=== PATIENT | male | born 1995 | race Caucasian/White ===

== ENCOUNTER → 2021-01-09 | Outpatient (REF) | payer OTHER | LOC: M SFHCPLAZ 11:20 | PROVIDERS: ATTEND Internal Medicine Infectious Disease | DX: Z53.9 Procedure and treatment not carried out, unspecified reason (principal); Z86.19 Personal history of other infectious and parasitic diseases ==

== ENCOUNTER 2025-02-12 14:38 | Inpatient (IN) | payer OTHER ==
[~2025-02-12] VITALS: Ht 185.4 cm; Wt 104.1 kg
[2025-02-12 15:35] LABS: HEMATOCRIT 51.8 % (42.0-52.0); HEMOGLOBIN 17.7 g/dl (13.5-17.5); MEAN CORPUSCULAR HEMOGLOBIN 30.6 pg (27.0-33.0); MEAN CORPUSCULAR HGB CONC 34.2 g/dl (32.0-36.5); MEAN CORPUSCULAR VOLUME 89.5 fl (80.0-96.0); PLATELET COUNT, AUTOMATED 345 10^3/uL (150-450); RED BLOOD COUNT 5.79 10^6/uL (4.30-6.10); WHITE BLOOD COUNT 14.6 10^3/uL (4.0-10.0)
[2025-02-12] MEDS: NICOTINE 21MG/24HR 1 EA TRANSDERMAL TD ONE (15:42)
[2025-02-12 15:57] LABS: AMPHETAMINES LEVEL URINE NEGATIVE (NEGATIVE)
[2025-02-12 15:58] LABS: BARBITURATES URINE NEGATIVE (NEGATIVE); BENZODIAZEPINES URINE NEGATIVE (NEGATIVE); COCAINE METABOLITE URINE NEGATIVE (NEGATIVE); METHADONE URINE NEGATIVE (NEGATIVE); OPIATES URINE NEGATIVE (NEGATIVE); PHENCYCLIDINE URINE NEGATIVE (NEGATIVE)
[2025-02-12 16:00] LABS: ETHYL ALCOHOL (ETHANOL) 0.008 % (0.000-0.010)
[2025-02-12 16:01] LABS: ALBUMIN 4.6 G/DL (3.2-5.2); ALKALINE PHOSPHATASE 102 U/L (40-129); ALT/SGPT 51 U/L (7.0-40); AST/SGOT 35 U/L (<34); BILIRUBIN,DIRECT 0.1 MG/DL (<0.4); BILIRUBIN,TOTAL 0.5 MG/DL (0.3-1.2); BLOOD UREA NITROGEN 10 MG/DL (9-23); CALCIUM LEVEL 9.8 MG/DL (8.5-10.1); CARBON DIOXIDE LEVEL 23 MMOL/L (20-31); CHLORIDE LEVEL 105 MMOL/L (98-107); CREATININE FOR GFR 0.83 MG/DL (0.70-1.30); GLOMERULAR FILTRATION RATE > 90.0 (>60); GLUCOSE, FASTING 95 MG/DL (60-100); POTASSIUM SERUM 4.9 MMOL/L (3.5-5.1); SALICYLATE LEVEL < 3.0 MG/DL (<30); SODIUM LEVEL 141 MMOL/L (136-145); TOTAL PROTEIN 8.9 G/DL (5.7-8.2)
[2025-02-12 16:02] LABS: CANNABINOIDS URINE POSITIVE (NEGATIVE)
[2025-02-12] MEDS ORDERED: traZODone 50 MG TAB PO PRN (18:55)
[2025-02-12] MEDS ORDERED: ACETAMINOPHEN 325 MG TAB PO PRN (18:55)
[2025-02-12] MEDS ORDERED: MAALOX 30 ML SUSP *UDC PO PRN (18:55)
[2025-02-12] MEDS ORDERED: IBUPROFEN 400MG TAB PO PRN (18:55)
[2025-02-12] MEDS ORDERED: diphenhydrAMINE 25MG CAP PO PRN (18:55)
[2025-02-12] MEDS ORDERED: MOM 30ML SUSPENSION UDC PO PRN (18:55)
[2025-02-12] MEDS: LORazepam 1 MG TAB PO ONE (19:49)
[2025-02-12] MEDS ORDERED: GABA-1635 PO (19:59)
[2025-02-12] MEDS ORDERED: METO1TAB7 PO (19:59)
[2025-02-12] MEDS ORDERED: LEXA1TAB2 PO (19:59)
[2025-02-12] MEDS ORDERED: HOME MED LIST COMPLETE! XX SCH (20:05)
[2025-02-13] MEDS: GABAPENTIN 400MG CAP PO SCH ×2 (07:54→17:58)
[2025-02-13] MEDS: METOPROLOL SUCC. 25MG *XL* TAB PO SCH (07:55)
[2025-02-13] MEDS: ESCITALOPRAM OXALATE 10 MG TAB PO SCH (07:55)
[2025-02-13] MEDS ORDERED: traZODone 50 MG TAB PO PRN (08:00)
[2025-02-13] MEDS ORDERED: MAALOX 30 ML SUSP *UDC PO PRN (08:00)
[2025-02-13] MEDS ORDERED: MOM 30ML SUSPENSION UDC PO PRN (08:00)
[2025-02-13] MEDS ORDERED: IBUPROFEN 400MG TAB PO PRN (08:00)
[2025-02-13] MEDS: NICOTINE 21MG/24HR 1 EA TRANSDERMAL TD SCH ×2 (09:00→09:12)
[2025-02-13 09:25] VITALS: BP 144/90; TEMP 97.8; O2SAT 97
[2025-02-13] MEDS: hydrOXYzine 50 MG TAB PO PRN (13:28)
[2025-02-13 16:19] VITALS: BP 150/96; TEMP 97.9; O2SAT 97
[2025-02-13] MEDS: QUEtiapine FUMARATE 50MG TAB PO SCH (20:38)
[2025-02-13] MEDS: diphenhydrAMINE 25MG CAP PO PRN (20:39)
[2025-02-13] MEDS ORDERED: GABAPENTIN 400MG CAP PO SCH (21:00)
[2025-02-14 07:05] VITALS: BP 140/106; TEMP 97; O2SAT 99
[2025-02-14 09:15] VITALS: BP 144/106
[2025-02-14] MEDS: ESCITALOPRAM OXALATE 10 MG TAB PO SCH (09:17)
[2025-02-14] MEDS: METOPROLOL SUCC. 25MG *XL* TAB PO SCH (09:18)
[2025-02-14 16:03] VITALS: BP 140/104; TEMP 97.7; O2SAT 99
[2025-02-15 07:05] VITALS: BP 140/90; TEMP 97.8; O2SAT 100
[2025-02-15 15:00] VITALS: BP 148/108; TEMP 98.2; O2SAT 97
[2025-02-15 15:52] VITALS: BP 140/92
[2025-02-15 17:47] VITALS: BP 148/109; TEMP 98.2; O2SAT 97
[2025-02-15] MEDS: ACETAMINOPHEN 325 MG TAB PO PRN (20:46)
[2025-02-16 06:40] VITALS: BP 144/98; TEMP 96.7; O2SAT 98
[2025-02-16] MEDS ORDERED: QUET50TA4 PO (07:49)
[2025-02-16 08:53] VITALS: BP 142/86
== END 2025-02-16 13:27 | disposition home or self-care (01) | DRG 751 ==
LOC: M ED 14:38 → M ED INP 18:53 → M PSY 02-13 09:26
PROVIDERS: ADMIT Student in an Organized Health Care Education/Training Program; ATTEND Student in an Organized Health Care Education/Training Program
DX: F33.1 Major depressive disorder, recurrent, moderate (principal); G62.9 Polyneuropathy, unspecified; I10 Essential (primary) hypertension; R45.850 Homicidal ideations; F41.1 Generalized anxiety disorder; F10.20 Alcohol dependence, uncomplicated; Z79.899 Other long term (current) drug therapy; D72.829 Elevated white blood cell count, unspecified

== ENCOUNTER 2025-02-17 15:40 | Emergency (ER) | payer OTHER ==
[~2025-02-17] VITALS: Ht 185.4 cm; Wt 102.6 kg
[~2025-02-17 15:40] MED LIST: GABA-1635 PO; LEXA1TAB2 PO; METO1TAB7 PO; QUET50TA4 PO
[2025-02-17 16:32] LABS: HEMOGLOBIN 16.2 g/dl (13.5-17.5); MEAN CORPUSCULAR HGB CONC 34.5 g/dl (32.0-36.5); PLATELET COUNT, AUTOMATED 305 10^3/uL (150-450); RED BLOOD COUNT 5.22 10^6/uL (4.30-6.10); WHITE BLOOD COUNT 19.1 10^3/uL (4.0-10.0)
[2025-02-17 16:51] LABS: AMPHETAMINES LEVEL URINE NEGATIVE (NEGATIVE); BARBITURATES URINE NEGATIVE (NEGATIVE); BENZODIAZEPINES URINE NEGATIVE (NEGATIVE); COCAINE METABOLITE URINE NEGATIVE (NEGATIVE); METHADONE URINE NEGATIVE (NEGATIVE); OPIATES URINE NEGATIVE (NEGATIVE); PHENCYCLIDINE URINE NEGATIVE (NEGATIVE)
[2025-02-17] MEDS ORDERED: HOME MED LIST COMPLETE! XX SCH (16:55)
[2025-02-17 16:59] LABS: ETHYL ALCOHOL (ETHANOL) 0.077 % (0.000-0.010)
[2025-02-17 17:00] LABS: SALICYLATE LEVEL < 3.0 MG/DL (<30)
[2025-02-17 17:01] LABS: ALBUMIN 4.6 G/DL (3.2-5.2); ALKALINE PHOSPHATASE 82 U/L (40-129); ALT/SGPT 40 U/L (7.0-40); AST/SGOT 33 U/L (<34); BILIRUBIN,DIRECT 0.2 MG/DL (<0.4); BILIRUBIN,TOTAL 0.5 MG/DL (0.3-1.2); BLOOD UREA NITROGEN 16 MG/DL (9-23); CALCIUM LEVEL 9.3 MG/DL (8.5-10.1); CARBON DIOXIDE LEVEL 18 MMOL/L (20-31); CHLORIDE LEVEL 105 MMOL/L (98-107); CREATININE FOR GFR 0.78 MG/DL (0.70-1.30); GLOMERULAR FILTRATION RATE > 90.0 (>60); GLUCOSE, FASTING 74 MG/DL (60-100); POTASSIUM SERUM 3.9 MMOL/L (3.5-5.1); SODIUM LEVEL 142 MMOL/L (136-145); TOTAL PROTEIN 8.1 G/DL (5.7-8.2)
[2025-02-17 17:03] LABS: CANNABINOIDS URINE POSITIVE (NEGATIVE)
[2025-02-17 17:08] LABS: THYROID STIMULATING HORMONE 0.263 uIU/ML (0.55-4.78)
[2025-02-17] MEDS: NICOTINE 21MG/24HR 1 EA TRANSDERMAL TD ONE (19:00)
[2025-02-18] MEDS: ESCITALOPRAM OXALATE 10 MG TAB PO SCH (10:07)
[2025-02-18 10:08] VITALS: BP 159/103
[2025-02-18] MEDS: METOPROLOL SUCC. 50MG *XL* TAB PO SCH (10:08)
[2025-02-18 10:32] VITALS: BP 148/96; TEMP 97.3; O2SAT 98
[2025-02-18] MEDS ORDERED: GABAPENTIN 400MG CAP PO SCH (16:00)
== END 2025-02-18 10:35 | disposition home or self-care (01) ==
LOC: M ED 15:40
DX: F10.129 Alcohol abuse with intoxication, unspecified (principal); F19.14 Other psychoactive substance abuse with psychoactive substance-induced mood disorder; F32.A Depression, unspecified; I10 Essential (primary) hypertension; Z79.899 Other long term (current) drug therapy

== ENCOUNTER 2025-08-01 23:19 | Emergency (ER) | payer OTHER, SELFPAY ==
[~2025-08-01] VITALS: Ht 180.3 cm; Wt 99.1 kg
[2025-08-01] MEDS: HALOPERIDOL LACTATE 5 MG/ML VIAL IM ONE (23:32)
[2025-08-01] MEDS: diphenhydrAMINE 50 MG/ML VIAL IM ONE (23:32)
[2025-08-02 00:28] LABS: PLATELET COUNT, AUTOMATED 338 10^3/uL (150-450)
[2025-08-02 00:44] LABS: ALT/SGPT 28 U/L (7.0-40); AST/SGOT 34 U/L (<34); CALCIUM LEVEL 9.1 MG/DL (8.5-10.1); CARBON DIOXIDE LEVEL 20 MMOL/L (20-31); CHLORIDE LEVEL 107 MMOL/L (98-107); CREATININE FOR GFR 1.02 MG/DL (0.70-1.30); GLOMERULAR FILTRATION RATE > 90.0 (>60); POTASSIUM SERUM 3.5 MMOL/L (3.5-5.1); SALICYLATE LEVEL < 3.0 MG/DL (<30); SODIUM LEVEL 142 MMOL/L (136-145)
[2025-08-02 00:53] LABS: AMPHETAMINES LEVEL URINE NEGATIVE (NEGATIVE); BARBITURATES URINE NEGATIVE (NEGATIVE); BENZODIAZEPINES URINE NEGATIVE (NEGATIVE); COCAINE METABOLITE URINE NEGATIVE (NEGATIVE); METHADONE URINE NEGATIVE (NEGATIVE); OPIATES URINE NEGATIVE (NEGATIVE); PHENCYCLIDINE URINE NEGATIVE (NEGATIVE)
[2025-08-02 00:55] LABS: CANNABINOIDS URINE POSITIVE (NEGATIVE); ETHYL ALCOHOL (ETHANOL) 0.300 % (0.000-0.010)
[2025-08-02] MEDS: NICOTINE 21 MG/24 HR 1 EA TRANSDERMAL TD ONE (08:02)
[2025-08-02 10:44] VITALS: BP 141/61; TEMP 97.3; O2SAT 98
== END 2025-08-02 11:15 | disposition home or self-care (01) ==
LOC: M ED 23:19
DX: F10.129 Alcohol abuse with intoxication, unspecified (principal); F32.A Depression, unspecified; F41.9 Anxiety disorder, unspecified; F17.200 Nicotine dependence, unspecified, uncomplicated; Z79.899 Other long term (current) drug therapy
CPT/HCPCS: 80048; 80076; 80143; 80307; 82077; 84443; 85027; 96372; 99285; J1200; J1630; J2060

== ENCOUNTER 2025-08-18 16:05 | Emergency (ER) | payer SELFPAY ==
[~2025-08-18] VITALS: Ht 185.4 cm; Wt 106.8 kg
[2025-08-18 16:45] LABS: PLATELET COUNT, AUTOMATED 334 10^3/uL (150-450)
[2025-08-18 17:04] LABS: BARBITURATES URINE NEGATIVE (NEGATIVE); COCAINE METABOLITE URINE NEGATIVE (NEGATIVE); METHADONE URINE NEGATIVE (NEGATIVE)
[2025-08-18 17:05] LABS: AMPHETAMINES LEVEL URINE NEGATIVE (NEGATIVE); BENZODIAZEPINES URINE NEGATIVE (NEGATIVE); OPIATES URINE NEGATIVE (NEGATIVE); PHENCYCLIDINE URINE NEGATIVE (NEGATIVE)
[2025-08-18 17:07] LABS: CANNABINOIDS URINE POSITIVE (NEGATIVE)
[2025-08-18 17:08] LABS: SALICYLATE LEVEL < 3.0 MG/DL (<30)
[2025-08-18 17:09] LABS: ALT/SGPT 46 U/L (7.0-40); AST/SGOT 30 U/L (<34); CALCIUM LEVEL 9.1 MG/DL (8.5-10.1); CARBON DIOXIDE LEVEL 26 MMOL/L (20-31); CHLORIDE LEVEL 106 MMOL/L (98-107); CREATININE FOR GFR 0.91 MG/DL (0.70-1.30); GLOMERULAR FILTRATION RATE > 90.0 (>60); POTASSIUM SERUM 4.1 MMOL/L (3.5-5.1); SODIUM LEVEL 144 MMOL/L (136-145)
[2025-08-18 17:12] LABS: ETHYL ALCOHOL (ETHANOL) 0.259 % (0.000-0.010)
[2025-08-19 02:57] VITALS: BP 165/90; TEMP 95.2; O2SAT 97
== END 2025-08-19 03:02 | disposition home or self-care (01) ==
LOC: M ED 16:05
DX: F10.129 Alcohol abuse with intoxication, unspecified (principal); I49.49 Other premature depolarization; Z79.899 Other long term (current) drug therapy